=== PATIENT | female | born 1960 | race Caucasian/White ===

== ENCOUNTER 2022-12-23 09:33 | Emergency (ER) | payer BC ==
[2022-12-23 09:48] VITALS: PULSE 80; TEMP 98.7
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
[2022-12-23 11:20] VITALS: BP 117/75; RESP 16
== END 2022-12-23 11:20 | disposition home or self-care (01) ==
LOC: EC 09:33
DX: S06.0XAA Concussion with loss of consciousness status unknown, initial encounter (principal); Z91.040 Latex allergy status; Z88.8 Allergy status to other drugs, medicaments and biological substances; X58.XXXA Exposure to other specified factors, initial encounter
CPT/HCPCS: 70450; 99283

== ENCOUNTER → 2023-06-13 | Outpatient (CLI) | payer BC ==
--- NOTE | 2023-06-15 08:02 | CT ---
EXAMINATION TYPE: CT chest wo con DATE OF EXAM: 06/13/2023 COMPARISON: 06/13/2023 HISTORY: 62-year-old female C54.1 MALIGNANT NEOPLASM OF ENDOMETRIUM. obs for mets, hx of lung nodule. hx of endometrial ca TECHNIQUE: Contiguous axial scanning of the chest without IV contrast. Coronal/sagittal reconstructio ns performed. CT DLP: 431mGycm. Automatic exposure control utilized for a dose reduction. FINDINGS: The heart is normal size without pericardial effusion. Aorta normal caliber with a conventional arch vessel branching anatomy. No thoracic lymphadenopathy by CT size criteria. Some strandy atelectasis at the left base. No consolidation or pleural effusion. Tiny 3 mm right middle lobe pulmonary nodule, axial image 41. 3 mm peripheral left lower lobe pulmonary nodule, axial image 42. Both of these are of questionable clinical significance. Precautionary 6 month surveillance follow-up could be performed. Visualized upper abdomen shows no gross abnormal body. Bones: Mild degenerative disc disease lower thoracic spine. IMPRESSION: A couple nonspecific, 3 mm pulmonary nodules of questionable clinical significance. Both of these can be reassessed at a 6 month follow-up as a precautionary measure. Otherwise, no acute pulmonary proce ss or convincing findings of metastatic disease in the chest.
== END | disposition home or self-care (01) ==
LOC: RADCTMAIN 15:33
PROVIDERS: ATTEND Obstetrics & Gynecology Gynecologic Oncology
DX: C54.1 Malignant neoplasm of endometrium (principal); R91.8 Other nonspecific abnormal finding of lung field
CPT/HCPCS: 71250

== ENCOUNTER → 2023-06-16 | Outpatient (CLI) | payer BC ==
--- NOTE | 2023-06-18 12:04 | MR ---
EXAMINATION TYPE: MR abdomen wo con, MR pelvis wo con DATE OF EXAM: 06/16/2023 8:37 PM CLINICAL INDICATION:Female, 62 years old with history of C54.1; COMPARISON: None TECHNIQUE: Multiplanar multi-sequence imaging was performed without contrast of the abdomen and pelv is. Patient Refused contrast. IV Contrast: None FINDINGS: LOWER CHEST: No gross irregularity. ABDOMEN Liver: There is mild signal dropout on composite phase imaging. Gallbladder and Bile ducts: No evidence for ductal dilation, or biliary stricture or evidence of chol edocholithiasis. The gallbladder is within normal limits. Pancreas: No ductal dilation. No evidence for solid mass. Spleen: Normal for size. Adrenal glands: Unremarkable. Kidneys: No evidence for obstructive uropathy. No suspicious renal masses. Stomach and Bowel: No evidence for bowel wall thickening or evidence for obstruction.. Peritoneum: No evidence of pneumoperitoneum or free fluid. Reproductive: Vagina: Unremarkable. Uterus: The uterus is surgically absent. Surgical bed demonstrates no definitive soft tissue deposits . Correlation with IV contrast. Ovaries: Follicular changes are noted to the ovaries. Bladder: Unremarkable. Lymph nodes: No evidence of adenopathy. Vasculature: Unremarkable. Musculoskeletal: Bone marrow signal is within normal signal intensity. Multilevel degeneration change s throughout the spine. Left gluteus jorge alberto intermuscular lipoma measuring up to 4.9 x 3.6 x 3.8 cm. Abdominal wall/soft tissues: Fat-containing umbilical hernia. IMPRESSION: No evidence of suspicious pelvic mass or lymphadenopathy.
== END | disposition home or self-care (01) ==
LOC: RADMRIMAIN 19:45
PROVIDERS: ATTEND Obstetrics & Gynecology Gynecologic Oncology
DX: C54.1 Malignant neoplasm of endometrium (principal)
CPT/HCPCS: 72195; 74181

== ENCOUNTER → 2024-07-24 | Outpatient (CLI) | payer BC ==
--- NOTE | 2024-07-24 13:11 | BD ---
EXAMINATION TYPE: Axial Bone Density DATE OF EXAM: 07/24/2024 CLINICAL HISTORY: 64 years old Female. ICD-10 CODE: N951 POST BEAU SYMPTOMS , Additional History: Height: pt refusing Weight: pt refusing FRAX RISK QUESTIONS: Secondary Osteoporosis: RISK FACTORS HISTORY OF: MEDICATIONS: EXAM MEASUREMENTS: Bone mineral densitometry was performed using the NCR System. Bone mineral density as measured about the Lumbar spine is: ----- L1-L4(G/cm2): 1.218 T Score Values are as follows: ----- L1: -0.9 ----- L2: -0.5 ----- L3: 0.9 ----- L4: 1.5 ----- L1-L4: 0.3 Z Score Values are as follows: ----- L1: 0.2 ----- L2: 0.6 ----- L3: 2.0 ----- L4: 2.6. ----- L1-L4: 1.[address] [facility] Bone mineral density about the R hip (g/cm2): 0.889 Bone mineral density about the L hip (g/cm2): 0.887 T Score values are as follows: -----R Neck: -1.7 -----L Neck: -1.9 -----R Total: -0.9 -----L Total: -1.0 Z Score values are as follows: -----R Neck: -0.8 -----L Neck: -0.5 -----R Total: -0.1 -----L Total: -0.[address] [facility] FRAX%s: The graph provided illustrates a 9.9% chance for a major osteoporotic fx and a 1.3% chance fo r the hips probability for fx in 10 years time. IMPRESSION: Osteopenia (T Score between -2.5 and -1). There is slightly increased risk of fracture and the patient may be considered for treatment. Re-Screen 2-5 years. NOTE: T-SCORE=SD OF THE YOUNG ADULT MEAN. [facility], Workstation: [employer], 07/24/2024 1:09 PM
== END | disposition home or self-care (01) ==
LOC: RADMAMWWP 11:07
PROVIDERS: ATTEND Obstetrics & Gynecology
DX: Z12.31 Encounter for screening mammogram for malignant neoplasm of breast (principal); N95.1 Menopausal and female climacteric states; M85.80 Other specified disorders of bone density and structure, unspecified site
CPT/HCPCS: 77067; 77080